=== PATIENT | male | born 1980 | race Caucasian/White ===

== ENCOUNTER 2023-10-03 06:16 | Emergency (ER) | payer OTHER ==
[~2023-10-03] VITALS: Ht 165.1 cm; Wt 69.9 kg
[2023-10-03 06:21] VITALS: BP_SYST 128; PULSE 80; RESP 18; TEMP 99; O2SAT 98
[2023-10-03] MEDS ORDERED: ACETAMINOPHEN 325 MG TABLET PO ONE (06:45)
[2023-10-03 08:54] VITALS: BP_SYST 130; PULSE 74; RESP 20; TEMP 98.1; O2SAT 99
== END 2023-10-03 08:55 | disposition home or self-care (01) ==
LOC: SED 06:16
DX: S16.1XXA Strain of muscle, fascia and tendon at neck level, initial encounter (principal); S29.012A Strain of muscle and tendon of back wall of thorax, initial encounter; N20.0 Calculus of kidney; Z79.899 Other long term (current) drug therapy; V89.2XXA Person injured in unspecified motor-vehicle accident, traffic, initial encounter; Y93.89 Activity, other specified; Y92.89 Other specified places as the place of occurrence of the external cause; Y99.8 Other external cause status
CPT/HCPCS: 70450-TC; 71250-TC; 72125-TC; 76376; 93005; 99284